=== PATIENT | female | born 1975 | race Two or more races ===

== ENCOUNTER 2018-09-27 07:15 | Emergency (ER) | payer SELFPAY ==
[~2018-09-27] VITALS: Ht 160 cm; Wt 145.1 kg
[2018-09-27 07:15] VITALS: BP 130/77
[~2018-09-27 07:15] MED LIST: CIPR500T94 PO; NAPR500T8 PO; PHEN100T82 PO
[2018-09-27 07:41] LABS: BILIRUBIN,URINE NEGATIVE (NEG); CLARITY,URINE CLEAR; COLOR,URINE YELLOW; NITRITE,URINE NEGATIVE (NEG); PROTEIN,URINE NEGATIVE (NEG-TRACE); UROBILINOGEN,URINE 0.2 mg/dL (0.2 mg/dL)
--- NOTE | 2018-09-27 07:42 | PHYS DOC ---
Past Medical History Past Medical History: Depression, Seizure Additional Past Medical Histor: obesity Past Surgical History: No Surgical History Smoking: Cigarettes (The patient is a nonsmoker.) Adult General Chief Complaint Chief Complaint: BACK PAIN OR INJURY HPI HPI Patient is a 44-year-old female who presents to the emergency department for evaluation. She states that for the past 2-3 days, she has had some bilateral lower back pain, more on the flanks them in the middle. She has had dysuria, and urinary frequency. She has not had any hematuria, vaginal bleeding or discharge. She has had some generalized lower abdominal discomfort, worse with urination. She has not had any fevers or chills, numbness, weakness, or incontinence. Urinating worsens her symptoms. There are no alleviating factors to the patient's symptoms. Review of Systems Review of Systems Constitutional: Denies fever or chills [] Eyes: Denies change in visual acuity, redness, or eye pain [] HENT: Denies nasal congestion or sore throat [] Respiratory: Denies cough or shortness of breath [] Cardiovascular:The patient denies any shortness of breath, chest pain, palpitations, or orthopnea [] GI: Denies abdominal pain, nausea, vomiting, bloody stools or diarrhea [] : Denies hematuria [] Musculoskeletal: Denies midline back pain or joint pain [] Integument: Denies rash or skin lesions [] Neurologic: Denies headache, focal weakness or sensory changes [] Endocrine: Denies polyuria or polydipsia [] All other systems were reviewed and found to be within normal limits, except as documented in this note. Current Medications Current Medications Current Medications Medications (Trade) Dose Ordered Sig/Shauna Start Time Stop Time Status Last Admin Dose Admin Ibuprofen (Motrin) 600 mg 1X ONCE 09/27/18 07:45 09/27/18 07:47 DC 09/27/18 08:02 600 MG Allergies Allergies Allergies Coded Allergies Type Severity Reaction Last Updated Verified No Known Drug Allergies 09/27/18 No Physical Exam Physical Exam PHYSICAL EXAM: CONSTITUTIONAL: Well developed, well nourished HEAD: normocephalic, atraumatic EENT: PERRL, EOMI. Conjunctivae normal color, sclerae non-icteric; moist mucous membranes. NECK: Supple, non-tender; no meningismus. LUNGS: Lungs CTA, breathing even and unlabored. Normal air movement. HEART: Regular rate and rhythm, no murmur CHEST: No deformity; non-tender ABDOMEN: The abdomen is soft, and non-tender, no masses or bruits. EXTREM: Normal ROM; no deformity, no calf tenderness. Normal pulses palpable in all extremities. There is bilateral nonpitting pedal edema. SKIN: No rash; no diaphoresis NEURO: Alert; normal speech and cognition; CN's grossly intact; strength grossly intact without focal deficit. There is no foot drop. There is no perineal anesthesia. BACK: No CVA TTP. There is no midline vertebral tenderness to palpation. There is no significant reproducible tenderness to palpation of the patient's pain. The patient does report some discomfort with palpation of her lower back paraspinal muscles bilaterally. Current Patient Data Vital Signs Vital Signs Date Time Temp Pulse Resp B/P (MAP) Pulse Ox O2 Delivery O2 Flow Rate FiO2 09/27/18 07:15 98.4 78 20 130/77 (94) 98 Room Air 98.4 Lab Values Laboratory Tests Test 09/27/18 07:15 09/27/18 07:31 Urine Collection Type Unknown Urine Color Yellow Urine Clarity Clear Urine pH 6.0 Urine Specific [place] 1.025 Urine Protein Negative mg/dL (NEG-TRACE) Urine Glucose (UA) Negative mg/dL (NEG) Urine Ketones (Stick) Negative mg/dL (NEG) Urine Blood Negative (NEG) Urine Nitrite Negative (NEG) Urine Bilirubin Negative (NEG) Urine Urobilinogen Dipstick 0.2 mg/dL (0.2 mg/dL) Urine Leukocyte Esterase Small (NEG) Urine RBC 1-2 /HPF (0-2) Urine WBC 5-10 /HPF (0-4) Urine Squamous Epithelial Cells Many /LPF Urine Bacteria Few /HPF (0-FEW) Urine Mucus Marked /LPF POC Urine HCG, Qualitative Hcg negative (Negative) EKG EKG [] Radiology/Procedures Radiology/Procedures [] Course & Med Decision Making Course & Med Decision Making Pertinent Lab studies reviewed. (See chart for details) [8:10 AM: The patient's condition remains stable. Her symptoms of dysuria, with discomfort both at the beginning and end of urination, do suggest a urinary tract infection, although there is no convincing evidence of UTI on her urinalysis. I discussed therapeutic trial of antibiotics, the use of NSAIDs, a heating pad, the need for close follow-up, and return precautions.] Dragon Disclaimer Dragon Disclaimer This electronic medical record was generated, in whole or in part, using a voice recognition dictation system. Departure Departure Impression: Primary Impression: Dysuria Additional Impression: Low back pain Disposition: 01 HOME, SELF-CARE Condition: STABLE Patient Instructions: Back Pain, Adult, Dysuria Additional Instructions: Applying a heating pad to the affected area may help improve your symptoms. Scripts Ibuprofen (IBUPROFEN) 600 Mg Tablet 600 MG PO PRN Q6HRS PRN for INFLAMMATION, #20 TAB Prov: VIV STARR MD 09/27/18 Sulfamethoxazole/Trimethoprim (BACTRIM DS TABLET) 1 Each Tablet 1 TAB PO BID, #10 TAB Prov: VIV STARR MD 09/27/18 Problem Qualifiers VIV STARR MD Sep 27, 2018 07:42
[2018-09-27] MEDS ORDERED: IBUPROFEN 600 MG TABLET. PO ONE (07:45)
[2018-09-27 07:53] LABS: SQUAMOUS EPITHELIAL CELL,UR MANY /LPF
[2018-09-27 07:54] LABS: BACTERIA,URINE FEW /HPF (0-FEW)
[2018-09-27] MEDS ORDERED: IBUP-1007 PO (08:17)
[2018-09-27] MEDS ORDERED: SULF1TAB24 PO (08:17)
== END 2018-09-27 08:39 | disposition home or self-care (01) ==
LOC: EDBD → ER 07:15
DX: M54.5 Low back pain (principal); R30.0 Dysuria; R35.0 Frequency of micturition; F32.9 Major depressive disorder, single episode, unspecified; E66.9 Obesity, unspecified; Z68.43 Body mass index [BMI] 50.0-59.9, adult
CPT/HCPCS: 81001; 81025; 87086; 99283

== ENCOUNTER 2018-11-09 12:07 | Emergency (ER) | payer SELFPAY ==
[~2018-11-09] VITALS: Ht 160 cm; Wt 145.1 kg
[~2018-11-09 12:07] MED LIST changes: +IBUP-1007 PO; +SULF1TAB24 PO
[2018-11-09 12:35] LABS: BILIRUBIN,URINE NEGATIVE (NEG); CLARITY,URINE CLEAR; COLOR,URINE YELLOW; NITRITE,URINE NEGATIVE (NEG); PH,URINE 6.5; PROTEIN,URINE NEGATIVE (NEG-TRACE); UROBILINOGEN,URINE 0.2 mg/dL (0.2 mg/dL)
[2018-11-09 12:52] LABS: SQUAMOUS EPITHELIAL CELL,UR MOD /LPF
[2018-11-09 12:53] LABS: BACTERIA,URINE 0 /HPF (0-FEW)
--- NOTE | 2018-11-09 12:56 | PHYS DOC ---
Past Medical History Past Medical History: Depression, Seizure Additional Past Medical Histor: obesity Past Surgical History: No Surgical History Alcohol Use: None Drug Use: None Adult General Chief Complaint Chief Complaint: URINARY FREQUENCY HPI HPI Patient is a 43 year old female who presents with left flank, left lower abdomen and mid lower abdomen and burning with urination for 3 days. She states she's been running a fever off and on. She isn't taking anything for pain today. Rates her pain a 7 out of 10 especially with urinating. She denies any blood in her urination. Review of Systems Review of Systems Constitutional: fever or chills [] Eyes: Denies change in visual acuity, redness, or eye pain [] HENT: Denies nasal congestion or sore throat [] Respiratory: Denies cough or shortness of breath [] Cardiovascular: No additional information not addressed in HPI [] GI: Left lower and mid lower abdominal pain, nausea, denies vomiting, bloody stools or diarrhea [] : dysuria or denies hematuria [] Musculoskeletal: Denies back pain or joint pain [] Integument: Denies rash or skin lesions [] Neurologic: Denies headache, focal weakness or sensory changes [] Endocrine: Denies polyuria or polydipsia [] All other systems were reviewed and found to be within normal limits, except as documented in this note. Allergies Allergies Allergies Coded Allergies Type Severity Reaction Last Updated Verified No Known Drug Allergies 09/27/18 No Physical Exam Physical Exam Constitutional: Well developed, well nourished, no acute distress, non-toxic appearance. [] HENT: Normocephalic, atraumatic, bilateral external ears normal, oropharynx moist, no oral exudates, nose normal. [] Eyes: PERRLA, EOMI, conjunctiva normal, no discharge. [] Neck: Normal range of motion, no tenderness, supple, no stridor. [] Cardiovascular:Heart rate regular rhythm, no murmur [] Lungs & Thorax: Bilateral breath sounds clear to auscultation [] Abdomen: Bowel sounds normal, soft, left lower and mid lower tenderness, no masses, no pulsatile masses. [] Skin: Warm, dry, no erythema, no rash. [] Back: No tenderness, + CVA tenderness. [] Extremities: No tenderness, no cyanosis, no clubbing, ROM intact, no edema. [] Neurologic: Alert and oriented X 3, normal motor function, normal sensory function, no focal deficits noted. [] Psychologic: Affect normal, judgement normal, mood normal. [] Current Patient Data Vital Signs Vital Signs Date Time Temp Pulse Resp B/P (MAP) Pulse Ox O2 Delivery O2 Flow Rate FiO2 11/09/18 12:27 98.1 60 18 130/62 (84) 100 Room Air 98.1 Lab Values Laboratory Tests Test 11/09/18 12:05 11/09/18 12:25 11/09/18 13:30 Urine Collection Type Unknown Urine Color Yellow Urine Clarity Clear Urine pH 6.5 Urine Specific [place] >=1.030 Urine Protein Negative mg/dL (NEG-TRACE) Urine Glucose (UA) Negative mg/dL (NEG) Urine Ketones (Stick) Negative mg/dL (NEG) Urine Blood Trace (NEG) Urine Nitrite Negative (NEG) Urine Bilirubin Negative (NEG) Urine Urobilinogen Dipstick 0.2 mg/dL (0.2 mg/dL) Urine Leukocyte Esterase Trace (NEG) Urine RBC 1-2 /HPF (0-2) Urine WBC 1-4 /HPF (0-4) Urine Squamous Epithelial Cells Mod /LPF Urine Bacteria 0 /HPF (0-FEW) Urine Mucus Slight /LPF POC Urine HCG, Qualitative Hcg negative (Negative) White Blood Count 2.2 x10^3/uL (4.0-11.0) L Red Blood Count 3.70 x10^6/uL (3.50-5.40) Hemoglobin 9.3 g/dL (12.0-15.5) L Hematocrit 29.5 % (36.0-47.0) L Mean Corpuscular Volume 80 fL (79-100) Mean Corpuscular Hemoglobin 25 pg (25-35) Mean Corpuscular Hemoglobin Concent 32 g/dL (31-37) Red Cell Distribution Width 16.0 % (11.5-14.5) H Platelet Count 203 x10^3/uL (140-400) Neutrophils (%) (Auto) 56 % (31-73) Lymphocytes (%) (Auto) 33 % (24-48) Monocytes (%) (Auto) 10 % (0-9) H Eosinophils (%) (Auto) 0 % (0-3) Basophils (%) (Auto) 1 % (0-3) Neutrophils # (Auto) 1.2 x10^3uL (1.8-7.7) L Lymphocytes # (Auto) 0.7 x10^3/uL (1.0-4.8) L Monocytes # (Auto) 0.2 x10^3/uL (0.0-1.1) Eosinophils # (Auto) 0.0 x10^3/uL (0.0-0.7) Basophils # (Auto) 0.0 x10^3/uL (0.0-0.2) Sodium Level 139 mmol/L (136-145) Potassium Level 4.1 mmol/L (3.5-5.1) Chloride Level 103 mmol/L (98-107) Carbon Dioxide Level 30 mmol/L (21-32) Anion Gap 6 (6-14) Blood Urea Nitrogen 12 mg/dL (7-20) Creatinine 0.4 mg/dL (0.6-1.0) L Estimated GFR (Cockcroft-Gault) 172.6 Glucose Level 128 mg/dL (70-99) H Calcium Level 9.2 mg/dL (8.5-10.1) Laboratory Tests 11/09/18 13:30 Laboratory Tests 11/09/18 13:30 EKG EKG [] Radiology/Procedures Radiology/Procedures [] Impressions: [facility] [address] [place], [place] [id number] IMAGING REPORT Signed PATIENT: HAILE WRIGHT ACCOUNT: [id number] : 1975 LOCATION: ER AGE: 43 SEX: F EXAM STATUS: REG ER ORD. PHYSICIAN: INGE MACIEL APRN REASON: left lower abdominal pain/ left flank PROCEDURE: CT ABDOMEN PELVIS WO CONTRAST Examination: CT of the abdomen pelvis without contrast. HISTORY: History of left flank pain COMPARISON: None available TECHNIQUE: Axial CT images of the abdomen pelvis were performed without contrast: Sagittal reformats are performed Exposure: One or more of the following individualized dose reduction techniques were utilized for this examination: 1. Automated exposure control 2. Adjustment of the mA and/or kV according to patient size 3. Use of iterative reconstruction technique FINDINGS: Minimal bibasilar lung atelectasis. No evidence of free air identified in the abdomen. Examination limited without oral and IV contrast. The visualized noncontrasted liver, spleen, adrenals grossly appears unremarkable. The gallbladder is mildly distended. The stomach is mildly distended. The visualized pancreas grossly appears unremarkable. The small bowel is nondilated. Feces and gas noted in the colon. The appendix is normal. No evidence of intrarenal collecting system calculi or hydronephrosis. Urinary bladder is mildly distended. Enlarged appearing uterus. The caliber of the aorta grossly appears unremarkable. Small nonspecific retroperitoneal lymph nodes with largest measuring 1 cm. IMPRESSION: 1. No evidence of intrarenal collecting system calculi or hydronephrosis. 2. Enlarged appearing uterus probably fibroid uterus. 3. Small nonspecific retroperitoneal lymph nodes. Electronically signed by: Heladio Vargas MD (11/09/2018 1:52 PM) [facility] DICTATED and SIGNED BY: HELADIO VARGAS MD DATE: 11/09/18 1460 Course & Med Decision Making Course & Med Decision Making Patient is a 43 year old female who presents with left flank, left lower abdomen and mid lower abdomen and burning with urination for 3 days. She states she's been running a fever off and on. She isn't taking anything for pain today. Rates her pain a 7 out of 10 especially with urinating. She denies any blood in her urination. Patient has some urinary frequency but states that she does feel like she empties her bladder. Abdomen is soft but tender with palpation to mid lower, left lower. Left CVA tenderness. Alert and oriented. Skin pink warm and dry. Mucous membranes are moist. States she's has some nausea but she is keeping fluids and food down. Afebrile in the ER. Vital signs within normal limits. Ambulatory with steady gait. Dragon Disclaimer Dragon Disclaimer This electronic medical record was generated, in whole or in part, using a voice recognition dictation system. Departure Departure Impression: Primary Impression: Urinary tract infection Disposition: 01 HOME, SELF-CARE Condition: STABLE Referrals: NO PCP (PCP) Patient Instructions: Urinary Tract Infection Additional Instructions: Follow up with primary care. Take medications as prescribed. Drink plenty of water. Scripts Cephalexin (KEFLEX) 500 Mg Capsule 1 CAP PO BID for 7 Days, #14 CAP Prov: INGE MACIEL APRN 11/09/18 Problem Qualifiers Primary Impression: Urinary tract infection Urinary tract infection type: site unspecified Hematuria presence: with hematuria Qualified Codes: N39.0 - Urinary tract infection, site not specified ; R31.9 - Hematuria, unspecified INGE MACIEL APRN Nov 09, 2018 12:56
[2018-11-09 13:40] LABS: BASO % 1 % (0-3); EOS % 0 % (0-3); HEMATOCRIT 29.5 % (36.0-47.0); HEMOGLOBIN 9.3 g/dL (12.0-15.5); LYMPH # 0.7 x10^3/uL (1.0-4.8); LYMPH % 33 % (24-48); MEAN CORPUSCULAR HEMOGLOBIN 25 pg (25-35); MEAN CORPUSCULAR HGB CONC 32 g/dL (31-37); MEAN CORPUSCULAR VOLUME 80 fL (79-100); MONO # 0.2 x10^3/uL (0.0-1.1); MONO % 10 % (0-9); NEUT # 1.2 x10^3uL (1.8-7.7); NEUT % 56 % (31-73); PLATELET COUNT 203 x10^3/uL (140-400); WHITE BLOOD COUNT 2.2 x10^3/uL (4.0-11.0)
[2018-11-09 13:48] LABS: CALCIUM 9.2 mg/dL (8.5-10.1); CREATININE 0.4 mg/dL (0.6-1.0); GFR 172.6; POTASSIUM 4.1 mmol/L (3.5-5.1)
--- NOTE | 2018-11-09 13:57 | RAD ---
Examination: CT of the abdomen pelvis without contrast. HISTORY: History of left flank pain COMPARISON: None available TECHNIQUE: Axial CT images of the abdomen pelvis were performed without contrast: Sagittal reformats are performed Exposure: One or more of the following individualized dose reduction techniques were utilized for this examination: 1. Automated exposure control 2. Adjustment of the mA and/or kV according to patient size 3. Use of iterative reconstruction technique FINDINGS: Minimal bibasilar lung atelectasis. No evidence of free air identified in the abdomen. Examination limited without oral and IV contrast. The visualized noncontrasted liver, spleen, adrenals grossly appears unremarkable. The gallbladder is mildly distended. The stomach is mildly distended. The visualized pancreas grossly appears unremarkable. The small bowel is nondilated. Feces and gas noted in the colon. The appendix is normal. No evidence of intrarenal collecting system calculi or hydronephrosis. Urinary bladder is mildly distended. Enlarged appearing uterus. The caliber of the aorta grossly appears unremarkable. Small nonspecific retroperitoneal lymph nodes with largest measuring 1 cm. IMPRESSION: 1. No evidence of intrarenal collecting system calculi or hydronephrosis. 2. Enlarged appearing uterus probably fibroid uterus. 3. Small nonspecific retroperitoneal lymph nodes. Electronically signed by: Heladio Harris MD (11/09/2018 1:52 PM) [place] [id number]
[2018-11-09] MEDS ORDERED: CEPH-264 PO (14:02)
== END 2018-11-09 14:07 | disposition home or self-care (01) ==
LOC: ER 12:07
DX: N39.0 Urinary tract infection, site not specified (principal); R11.0 Nausea; E66.9 Obesity, unspecified; Z68.43 Body mass index [BMI] 50.0-59.9, adult
CPT/HCPCS: 36415; 74176; 80048; 81001; 81025; 85025; 87086; 99284-25

== ENCOUNTER 2019-04-08 15:17 | Emergency (ER) | payer SELFPAY ==
[~2019-04-08] VITALS: Ht 160 cm; Wt 137.0 kg
[~2019-04-08 15:17] MED LIST changes: +CEPH-264 PO
[2019-04-08 15:37] VITALS: BP 127/80
[2019-04-08 15:54] LABS: BILIRUBIN,URINE NEGATIVE (NEG); CLARITY,URINE CLEAR; COLOR,URINE AMBER; NITRITE,URINE NEGATIVE (NEG); PH,URINE 6.5; PROTEIN,URINE 30 mg/dL (NEG-TRACE)
--- NOTE | 2019-04-08 15:57 | PHYS DOC ---
Past Medical History Past Medical History: Depression, Seizure Additional Past Medical Histor: obesity Past Surgical History: No Surgical History Alcohol Use: None Drug Use: None Adult General Chief Complaint Chief Complaint: LOWER EXT PAIN HPI HPI Patient is a 43 year old female who presents with bilateral leg pains been ongoing for 5 days. Patient denies any trauma. The patient also states she's been having dysuria. Rates her pain as 10 out of 10 in severity and states it is sharp and throbbing. The patient states she took Tylenol at home. Review of Systems Review of Systems Constitutional: Denies fever or chills [] Eyes: Denies change in visual acuity, redness, or eye pain [] HENT: Denies nasal congestion or sore throat [] Respiratory: Denies cough or shortness of breath [] Cardiovascular: No additional information not addressed in HPI [] GI: Denies abdominal pain, nausea, vomiting, bloody stools or diarrhea [] : Reports dysuria but denies hematuria [] Musculoskeletal: Denies back pain but reports bilateral leg pain. Integument: Denies rash or skin lesions [] Neurologic: Denies headache, focal weakness or sensory changes [] Complete systems were reviewed and found to be within normal limits, except as documented in this note. Allergies Allergies Allergies Coded Allergies Type Severity Reaction Last Updated Verified No Known Drug Allergies 09/27/18 No Physical Exam Physical Exam Constitutional: Well developed, well nourished, no acute distress, non-toxic appearance. [] HENT: Normocephalic, atraumatic, bilateral external ears normal, oropharynx moist, no oral exudates, nose normal. [] Eyes: PERRLA, EOMI, conjunctiva normal, no discharge. [] Neck: Normal range of motion, no tenderness, supple, no stridor. [] Cardiovascular:Heart rate regular rhythm, no murmur [] Lungs & Thorax: Bilateral breath sounds clear to auscultation [] Abdomen: Bowel sounds normal, soft, no tenderness, no masses, no pulsatile masses. [] Skin: Warm, dry, no erythema, no rash. [] ] Extremities: Tenderness to bilateral calf with edema Neurologic: Alert and oriented X 3, normal motor function, normal sensory function, no focal deficits noted. [] Psychologic: Affect normal, judgement normal, mood normal. [] Current Patient Data Vital Signs Vital Signs Date Time Temp Pulse Resp B/P (MAP) Pulse Ox O2 Delivery O2 Flow Rate FiO2 04/08/19 15:37 98.5 73 18 127/80 (96) 98 Room Air 98.5 Lab Values Laboratory Tests Test 04/08/19 15:41 Urine Collection Type Unknown Urine Color [place] Urine Clarity Clear Urine pH 6.5 Urine Specific [place] >=1.030 Urine Protein 30 mg/dL (NEG-TRACE) Urine Glucose (UA) Negative mg/dL (NEG) Urine Ketones (Stick) Negative mg/dL (NEG) Urine Blood Large (NEG) Urine Nitrite Negative (NEG) Urine Bilirubin Negative (NEG) Urine Urobilinogen Dipstick 1.0 mg/dL (0.2 mg/dL) Urine Leukocyte Esterase Trace (NEG) Urine RBC >40 /HPF (0-2) Urine WBC Occ /HPF (0-4) Urine Squamous Epithelial Cells Few /LPF Urine Bacteria Few /HPF (0-FEW) Urine Mucus Mod /LPF EKG EKG [] Radiology/Procedures Radiology/Procedures [][facility] [address] [place] [address] IMAGING REPORT Signed PATIENT: HAILE WRIGHT ACCOUNT: [id number] : 1975 LOCATION: ER AGE: 43 SEX: F EXAM STATUS: REG ER ORD. PHYSICIAN: RONAN LAM APRN REASON: calf pain, swelling PROCEDURE: VENOUS LOWER EXT BILATERAL ADDENDUM Addendum: Please disregard the initial report. Bilateral lower extremity venous Doppler dated 04/08/2019. No comparison available. Clinical indication: Swelling. FINDINGS: Grayscale, color-flow and spectral waveform analysis was performed to include the deep venous system of both lower extremity. Normal compressibility, phasicity and augmentation of flow throughout. No filling defects are seen. IMPRESSION: No evidence of BILATERAL lower extremity deep vein thrombosis. Electronically signed by: Ronan Santiago MD (04/08/2019 5:42 PM) [facility] DICTATED AND SIGNED BY: RONAN SANTIAGO MD DATE: 04/08/19 5091 CC: RONAN LAM APRN; NO PCP ~ Right lower extremity venous Doppler dated 04/08/2019. No comparison available. Clinical indication: Swelling. FINDINGS: Grayscale, color-flow and spectral waveform analysis performed to include the deep venous system of the right lower extremity. Normal compressibility, phasicity and augmentation of flow throughout. No filling defects are seen. IMPRESSION: No evidence of right lower extremity deep vein thrombosis. Electronically signed by: Ronan Santiago MD (04/08/2019 5:20 PM) [facility] DICTATED and SIGNED BY: RONAN SANTIAGO MD DATE: 04/08/19 172 Course & Med Decision Making Course & Med Decision Making Pertinent Labs and Imaging studies reviewed. (See chart for details) Will get UA and bilateral venous ultrasound. Ultrasound is negative, UA shows UTI. Dragon Disclaimer Dragon Disclaimer This electronic medical record was generated, in whole or in part, using a voice recognition dictation system. Departure Departure Impression: Primary Impression: Urinary tract infection Disposition: HOME, SELF-CARE Condition: STABLE Referrals: NO PCP (PCP) Patient Instructions: Urinary Tract Infection Additional Instructions: Thank you for visiting [facility]. We appreciate you trusting us with your care. If any additional problems come up don't hesitate to return to visit us. Please follow up with your primary care provider so they can plan a dditional care if needed and know about the problem that you had. If symptoms worsen come back to the Emergency Department. Any concerning symptoms that start such as chest pain, shortness of air, weakness or numbness on one side of the body, running high fevers or any other concerning symptoms return to the ER. You have been prescribed an antibiotic today to help fight your infection. Please take all of the antibiotic as directed. If after 48 hours the infection is not improving, please return for more care. If the infection worsens, return to ER for additional care. Scripts Cephalexin (KEFLEX) 500 Mg Capsule 1 CAP PO BID for 7 Days, #14 CAP Prov: RONAN LAM APRN 04/08/19 Problem Qualifiers Primary Impression: Urinary tract infection Urinary tract infection type: acute cystitis Hematuria presence: without hematuria Qualified Codes: N30.00 - Acute cystitis without hematuria RONAN LAM APRN Apr 08, 2019 15:57
[2019-04-08 16:05] LABS: BACTERIA,URINE FEW /HPF (0-FEW); RBC,URINE >40 /HPF (0-2); SQUAMOUS EPITHELIAL CELL,UR FEW /LPF; WBC,URINE OCC /HPF (0-4)
--- NOTE | 2019-04-08 17:23 | RAD ---
Right lower extremity venous Doppler dated 04/08/2019. No comparison available. Clinical indication: Swelling. FINDINGS: Grayscale, color-flow and spectral waveform analysis performed to include the deep venous system of the right lower extremity. Normal compressibility, phasicity and augmentation of flow throughout. No filling defects are seen. IMPRESSION: No evidence of right lower extremity deep vein thrombosis. Electronically signed by: Rodolfo Santiago MD (04/08/2019 5:20 PM) [facility]
[2019-04-08] MEDS ORDERED: CEPH-264 PO (17:49)
[2019-04-08] MEDS ORDERED: KETOROLAC 30 MG/ML VIAL. IM ONE (18:00)
== END 2019-04-08 17:54 | disposition home or self-care (01) ==
LOC: ER 15:17
DX: N30.00 Acute cystitis without hematuria (principal); M79.604 Pain in right leg; M79.605 Pain in left leg; E66.9 Obesity, unspecified; F32.9 Major depressive disorder, single episode, unspecified; Z68.43 Body mass index [BMI] 50.0-59.9, adult
CPT/HCPCS: 81001; 87086; 93970; 96372; 99285; J1885